=== PATIENT | female | born 1960 | race Caucasian/White ===

== ENCOUNTER → 2020-07-19 | Outpatient (CLI) | payer OTHER ==
[~2020-07-19] VITALS: Ht 152.4 cm; Wt 78.0 kg
== END ==
LOC: OPSV 08:42
DX: M81.0 Age-related osteoporosis without current pathological fracture (principal)
CPT/HCPCS: 96365; J3489

== ENCOUNTER → 2020-09-21 | Outpatient (CLI) | payer OTHER | LOC: KOH-I 12:31 | DX: R13.10 Dysphagia, unspecified (principal); E07.89 Other specified disorders of thyroid | CPT/HCPCS: 76536 ==

== ENCOUNTER → 2021-02-25 | Outpatient (CLI) | payer OTHER | LOC: EXRD 08:27 | DX: Z12.31 Encounter for screening mammogram for malignant neoplasm of breast (principal); R06.02 Shortness of breath | CPT/HCPCS: 71046 ==

== ENCOUNTER → 2021-08-08 | Outpatient (CLI) | payer OTHER ==
[~2021-08-08] VITALS: Ht 152.4 cm; Wt 73.5 kg
== END ==
LOC: OPSV 13:31
DX: M81.0 Age-related osteoporosis without current pathological fracture (principal)
CPT/HCPCS: 96365; J3489